=== PATIENT | female | born 1935 | race Two or more races ===

== ENCOUNTER 2020-02-06 02:25 | Emergency (ER) | payer MEDICARE ==
[~2020-02-06] VITALS: Ht 162.6 cm; Wt 50.0 kg
--- NOTE | 2020-02-06 02:39 | NUR ---
patient recieved 4mg of zofran iv, 2g of rocephin, and 500 of flagyl of from OSH.
[2020-02-06] MEDS ORDERED: ALEN70TA6 PO (02:43)
[2020-02-06] MEDS ORDERED: RIVA20TA PO (02:46)
[2020-02-06] MEDS ORDERED: SERT25TA3 PO (02:46)
[2020-02-06] MEDS ORDERED: MIRT-34 PO (02:46)
[2020-02-06] MEDS ORDERED: METO-290 PO (02:46)
[2020-02-06] MEDS ORDERED: LEVO88TA2 PO (02:46)
--- NOTE | 2020-02-06 03:05 | NUR ---
PATIENT WAS TESTED FOR COVID AT [facility] [place], SHE IS AFREBRILE, SHE IS COMPLAINING OF SOME NECK PAIN. PATIENT HAS SWELLING ON HER NECK BILATERALLY THAT TRAVELS DOWN TO HER LOWER NECK. AIRWAY PATENT, PATIENT IS ABLE TO SWALLOW. VSS, NAD. PATIENT RECIEVED ABX AND FLUID FOR THE NECK INFECTION, UTI AND ELEVATED LACTATE. PATIENT IS ALERT TO SELF AND BUT OFF ON YEAR AND PLACE. PATIENT AT BASELINE HAS DEMENTIA
[2020-02-06] MEDS ORDERED: SODIUM CHLORIDE 0.9% 1,000 ML IV ONE (03:10)
[2020-02-06 03:41] LABS: ALANINE AMINOTRANSFERASE 19 U/L (12-78); ALBUMIN 3.4 g/dL (3.4-5.0); ANION GAP 6 mmol/L (5-15); CALCIUM 8.2 mg/dL (8.5-10.1); CHLORIDE 108 mmol/L (98-107); CREATININE 1.07 mg/dL (0.55-1.02)
[2020-02-06 03:44] LABS: ALKALINE PHOSPHATASE 79 U/L (45-117); BILIRUBIN,TOTAL 0.8 mg/dL (0.2-1.0); TOTAL PROTEIN 7.7 g/dL (6.4-8.2)
[2020-02-06] MEDS ORDERED: OMNIPAQUE 350 MG/ML, 100ML BOTTLE ONE (03:49)
[2020-02-06 04:04] LABS: BASOPHILS # (AUTO) 0.03 x10^3/uL (0-0.1); BASOPHILS % (AUTO) 0 % (0-1); EOSINOPHILS % (AUTO) 0 % (1-7); LYMPHOCYTES % (AUTO) 18 % (22-44); MD NO; MEAN CORPUSCULAR HEMOGLOBIN 32.3 pg (27.0-34.8); MEAN CORPUSCULAR HGB CONC 32.4 g/dL (32.4-35.8); MEAN PLATELET VOLUME 8.8 fL (7.4-10.4); MONOCYTES # (AUTO) 0.78 x10^3/uL (0.2-0.8); MONOCYTES % (AUTO) 7 % (2-9); NEUTROPHILS # (AUTO) 8.61 x10^3/uL (1.8-6.8); NEUTROPHILS % (AUTO) 75 % (42-75); PLATELET COUNT 140 x10^3/uL (130-400); RED BLOOD COUNT 3.39 x10^6/uL (3.82-5.3); RED CELL DISTRIBUTION WIDTH 14.1 % (9.6-15.2)
[2020-02-06 04:23] LABS: INTERNATIONAL NORMALIZED RATIO 1.13 (0.93-1.1)
--- NOTE | 2020-02-06 05:12 | NUR ---
RN TOOK REPORT OF A CRITICAL FROM RADIOLOGY, WILL LET MD KNOW. PATIENTS VSS, PUPILS EQUAL AND REACTIVE, GOOD ARM AND LEG STRENGTH, NO DRIFT. STRONG RADIAL AND PEDAL PULSES. HOB ELEVATED
[2020-02-06] MEDS ORDERED: hydrALAzine 20 MG/ML, 1ML IV ONE (05:30)
[2020-02-06] MEDS ORDERED: hydrALAzine 20 MG/ML, 1ML ONE (05:38)
--- NOTE | 2020-02-06 05:46 | NUR ---
MD AWARE OF RESULTS, PLAN IS TO GET PATIENTS BP AT A GOAL OF 120
--- NOTE | 2020-02-06 05:57 | NUR ---
CCOLLAR PLACED ON PATIENT TO PROTECT HER NECK, PATIENT IS TOLERATING IT WELL
[2020-02-06 05:59] VITALS: BP 155/86
--- NOTE | 2020-02-06 06:08 | NUR ---
RN ADMISSIONS: PT BEING TRANSFERRED TO [facility] NEUROS[facility], DR. FALCON ACCEPTING PHYSICIAN. [facility] CALLED AND TRANSPORT INITIATED
--- NOTE | 2020-02-06 06:19 | NUR ---
REPORT GIVEN TO [employer] SAFETY INSPECTOR JAMIE AT [facility]. [facility] TRANSFERING PATIENT AT THIS TIME.
== END 2020-02-06 09:15 | disposition short-term general hospital (02) ==
LOC: ED 04:30
DX: S06.5X0A Traumatic subdural hemorrhage without loss of consciousness, initial encounter (principal); S29.9XXA Unspecified injury of thorax, initial encounter; R50.9 Fever, unspecified; R05 Cough; I48.91 Unspecified atrial fibrillation; I31.2 Hemopericardium, not elsewhere classified; I10 Essential (primary) hypertension; E03.9 Hypothyroidism, unspecified; R41.82 Altered mental status, unspecified; X58.XXXA Exposure to other specified factors, initial encounter; Y93.89 Activity, other specified; Y92.89 Other specified places as the place of occurrence of the external cause; Y99.8 Other external cause status
CPT/HCPCS: 36415; 70450; 70491; 71260; 80053; 83605; 85025; 85610; 85730; 87040; 93005; 96361; 96374; 99291; J0360; J7030; Q9967